=== PATIENT | female | born 2000 | race Caucasian/White ===

== ENCOUNTER 2022-03-11 05:42 | Emergency (ER) | payer MEDICAID ==
[~2022-03-11] VITALS: Ht 165 cm; Wt 63.5 kg
[~2022-03-11 05:42] MED LIST: AC160U10; AMOX/CLAV; IBP100U5; SULF1TAB38
[2022-03-11 06:05] VITALS: BP 121/78
--- NOTE | 2022-03-11 06:37 | ED Abdominal Pain ---
General Chief Complaint: Abdominal/GI Problems Stated Complaint: SEVERE ABD PAIN Nursing Triage Note: Pt presents ambulatory with c/o all over abdominal pain that woke her up this morning. She states that the pain has now migrated to lower right quadrant. Pt had appendix out at age 7. Denies N/V but states she did have some diarrhea last night. Source of Information: Patient Exam Limitations: No Limitations (KRYSTLE HERNÁNDEZ) History of Present Illness Date Seen by Provider: Mar 11, 2022 Time Seen by Provider: 06:31 Initial Comments Patient is a 21 year old F who presents to the ER with her mother this morning with CC of RLQ abdominal pain onset this AM when she woke up. She reports that she had a irene burrito at [facility] last night for dinner. She states she had one episode of diarrhea as well following dinner. Her mother also ate at the same restaurant and did not have any symptoms. Denies any blood in stools. She states she is urinating normally. Patient reports that when she woke up this morning she experienced diffuse abdominal pain that was "worst pain she had in her life" that lasted for 20 minutes. She states she was unable to walk and any movement at all exacerbated the pain. She describes the pain as sharp. At present, she states her pain is mostly localized to the RLQ and rates it at a 5 /10. LMP was 2.5 weeks ago. Patient has history of appendectomy done at age 7. Timing/Duration: 1 Day Severity/Quality: Sharp Location: RLQ Radiation: No Radiation Modifying Factors: Improves With Movement (KRYSTLE HERNÁNDEZ) Allergies and Home Medications Allergies Coded Allergies: No Known Drug Allergies (Verified Allergy, Unknown, 01/10/08) Patient Home Medication List Home Medication List Reviewed: Yes (KRYSTLE HERNÁNDEZ) Review of Systems Review of Systems Constitutional: No chills, No fever Gastrointestinal: Abdominal Pain, Diarrhea, Nausea; Denies Vomiting (KRYSTLE HERNÁNDEZ) Past Bzovsij-Dvuaay-Hqmcgt Hx Past Medical History Appendectomy Last Menstrual Period: Feb 21, 2022 Reproductive Disorders: No (KRYSTLE HERNÁNDEZ) Physical Exam Vital Signs Vital Signs - First Documented 03/11/22 06:05 Temp 35.7 Pulse 85 Resp 18 B/P (MAP) 121/78 (92) (ETTA VILLAR MD) Vital Signs Capillary Refill : Less Than 3 Seconds (SUBBARAO,KRYSTLE) Height/Weight/BMI Height: '" Weight: lbs. oz. kg; 23.00 BMI Method: General Appearance: WD/WN, no apparent distress Respiratory: chest non-tender, lungs clear, normal breath sounds, no respiratory distress, no accessory muscle use Cardiovascular: regular rate, rhythm, no murmur Gastrointestinal: normal bowel sounds, soft, tenderness (to palpation of RLQ ) Extremities: non-tender, no pedal edema, no calf tenderness, normal capillary refill Skin: normal color, warm/dry (SUBBARAO,KRYSTLE) Progress/Results/Core Measures Results/Orders Lab Results Laboratory Tests Test 03/11/22 06:52 Range/Units Urine Color YELLOW Urine Clarity SL CLOUDY Urine pH 6.0 5-9 Urine Specific [place] 1.020 1.016-1.022 Urine Protein NEGATIVE NEGATIVE Urine Glucose (UA) NEGATIVE NEGATIVE Urine Ketones NEGATIVE NEGATIVE Urine Nitrite NEGATIVE NEGATIVE Urine Bilirubin NEGATIVE NEGATIVE Urine Urobilinogen 0.2 < = 1.0 MG/DL Urine Leukocyte Esterase 3+ H NEGATIVE Urine RBC (Auto) TRACE-I H NEGATIVE Urine RBC 2-5 H /HPF Urine WBC 25-50 H /HPF Urine Squamous Epithelial Cells 5-10 /HPF Urine Crystals NONE /LPF Urine Bacteria LARGE H /HPF Urine Casts NONE /LPF Urine Mucus NEGATIVE /LPF Urine Culture Indicated YES (ETTA VILLAR MD) My Orders Orders - ETTA VILLAR MD Ua Culture If Indicated (03/11/22 06:42) Urine Bedside (03/11/22 06:42) Urine Culture (03/11/22 06:52) (ETTA VILLAR MD) Vital Signs/I&O 03/11/22 06:05 Temp 35.7 Pulse 85 Resp 18 B/P (MAP) 121/78 (92) (ETTA VILLAR MD) Blood Pressure Mean: 92 Progress Progress Note : Time: 07:26 Progress Note Patient seen and evaluated, 21-year-old with abdominal pain/right lower quadrant pain and mild nausea. Symptom onset when she woke up. Evaluation today includes physical exam, urine test and urinalysis. She is sexually active but denies any symptoms related to sexually transmitted infection. She denies hematuria. No dysuria urgency or frequency. test was negative. Urinalysis shows 2-5 red blood cells, white blood cells and large bacteria. She also has 5-10 squamous epithelial cells but negative nitrites positive leukocyte Estrace. Symptomatically she is better. Abdominal exam is benign. Consideration for imaging however history and current physical examination are not supportive of the need. Also on the differential, tubo- ovarian abscess, ovarian torsion, in addition to renal stone. Advised patient to take some Tylenol and ibuprofen today, hydrate, if fever or worsening symptoms she is instructed to come back to the emergency room. She and mom are comfortable with plan of care. All questions are sought and answered. Patient is stable for discharge (ETTA VILLAR MD) Departure Impression Primary Impression: Abdominal pain Qualified Codes: R10.31 - Right lower quadrant pain Disposition: 01 HOME, SELF-CARE Condition: Improved Departure-Patient Inst. Decision time for Depature: 07:28 (ETTA VILLAR MD) Referrals: UNKNOWN (PCP/Family) Primary Care Physician Patient Instructions: Abdominal Pain, Adult ED Add. Discharge Instructions: Drink plenty of fluids to stay well hydrated. Extra strength tylenol 2 tablets or ibuprofen 3 tablets (600mg) every 6 hours as needed for mild to moderate pain. If you have sudden worsening of symptoms, especially with fever or vomiting, please come back to the Emergency Department for re-evaluation. Your urine will culture and if there are any bacteria that grow from the culture we will follow up with you for antibiotics. Verification and Attestation of Medical Student E/M Service A medical student performed and documented this service in my presence. I reviewed and verified all information documented by the medical student and made modifications to such information, when appropriate. I personally performed the physical exam and medical decision making. Etta Villar, Mar 11, 2022,07:30 (ETTA VILLAR MD) KRYSTLE HERNÁNDEZ Mar 11, 2022 06:36 ETTA VILLAR MD Mar 11, 2022 07:30
[2022-03-11 06:56] LABS: BILIRUBIN,URINE NEGATIVE (NEGATIVE); CLARITY,URINE SL CLOUDY; COLOR,URINE YELLOW; GLUCOSE, URINE (UA) NEGATIVE (NEGATIVE); KETONES,URINE NEGATIVE (NEGATIVE); LEUKOCYTE ESTERASE ,URINE 3+ (NEGATIVE); NITRITE,URINE NEGATIVE (NEGATIVE); PROTEIN,URINE NEGATIVE (NEGATIVE)
[2022-03-11 07:18] LABS: BACTERIA,URINE LARGE /HPF; WBC,URINE 25-50 /HPF
== END 2022-03-11 07:38 | disposition home or self-care (01) ==
LOC: EDUNIT# 05:42 → ER 05:47
DX: R10.31 Right lower quadrant pain (principal); R11.0 Nausea; Z32.02 Encounter for pregnancy test, result negative; Z28.310 Unvaccinated for COVID-19; Z90.49 Acquired absence of other specified parts of digestive tract
CPT/HCPCS: 81000; 84703; 87088; 99282